=== PATIENT | female | born 1970 | race Caucasian/White ===

== ENCOUNTER 2022-11-27 21:40 | Emergency (ER) | payer OTHER ==
[2022-11-27 22:26] LABS: #Basophils 0.1 10x3/uL (0.0-0.2); #Eosinphils 0.2 10x3/uL (0.0-0.5); #Monocytes 0.9 10x3/uL (0.0-1.1); #Neutrophils 7.7 10x3/uL (1.5-8.4); %Basophils 0.7 % (0.0-2.0); %Eosinophils 1.9 % (0.0-6.0); %Lymphocytes 15.3 % (18.0-47.0); %Monocytes 8.6 % (0.0-10.0); %Neutrophils 72.9 % (40.0-75.0); Hemoglobin 9.5 g/dL (12.0-15.5); Mean Corpuscular HGB CONC 30.1 g/dL (32.0-36.0); Mean Corpuscular Hemoglobin 24.9 pg (27.0-33.0); Mean Corpuscular Volume 82.7 fl (81.6-98.3); Mean Platelet Volume 10.5 fl (7.4-10.4); Platelet Count 283 10x3/uL (150-450); RBC Distribution Width 16.8 % (11.5-14.5); Red Blood Cell (RBC) Count 3.82 10x6/uL (3.90-5.03); White Blood Cell (WBC) Count 10.5 10x3/uL (3.5-10.5)
[2022-11-27 22:40] LABS: ALT (SGPT) 19 U/L (8-55); AST (SGOT) 20 U/L (5-34); Albumin 3.4 g/dL (3.5-5.0); Alkaline Phosphatase 115 U/L (40-110); Anion Gap 13 mmol/L (10-20); BUN (Urea Nitrogen) 10 mg/dL (7.0-18.7); Bilirubin, Total 0.3 mg/dL (0.2-1.2); Calc. Creatinine Clearance 0 mL/min (70-130); Calcium 8.5 mg/dL (7.8-10.44); Carbon Dioxide 26 mmol/L (22-29); Chloride 99 mmol/L (98-107); Estimated GFR 59; Globulin 2.4 g/dL (2.4-3.5); Glucose 309 mg/dL (70-105); Potassium 3.6 mmol/L (3.5-5.1); Protein, Total 5.8 g/dL (6.0-8.3); Sodium 134 mmol/L (136-145)
== END 2022-11-27 22:59 | disposition home or self-care (01) ==
LOC: CSHERS 21:40
DX: R60.0 Localized edema (principal); E11.9 Type 2 diabetes mellitus without complications; I10 Essential (primary) hypertension; F17.210 Nicotine dependence, cigarettes, uncomplicated; J45.909 Unspecified asthma, uncomplicated; Z79.84 Long term (current) use of oral hypoglycemic drugs; Z79.899 Other long term (current) drug therapy
CPT/HCPCS: 36415; 80053; 83880; 85025; 99284

== ENCOUNTER 2023-12-07 20:04 | Observation (INO) | payer MEDICAID, OTHER ==
[2023-12-07] MEDS ORDERED: Ondansetron PF 4 MG/2 ML Vial ONE ×2 (20:27→22:48)
[2023-12-07 20:53] LABS: #Basophils 0.05 10x3/uL (0.0-0.2); #Eosinphils 0.08 10x3/uL (0.0-0.5); #Monocytes 0.79 10x3/uL (0.0-1.1); #Neutrophils 9.69 10x3/uL (1.5-8.4); %Basophils 0.4 % (0.0-2.0); %Eosinophils 0.7 % (0.0-6.0); %Lymphocytes 10.9 % (18.0-47.0); %Monocytes 6.6 % (0.0-10.0); Hematocrit 35.8 % (34.9-44.5); Hemoglobin 12.6 g/dL (12.0-15.5); Mean Corpuscular HGB CONC 35.2 g/dL (32.0-36.0); Mean Corpuscular Hemoglobin 29.2 pg (27.0-33.0); Mean Corpuscular Volume 83.1 fL (81.6-98.3); Mean Platelet Volume 10.2 fL (7.4-10.4); Platelet Count 312 10x3/uL (150-450); RBC Distribution Width 14.8 % (11.5-14.5); Red Blood Cell (RBC) Count 4.31 10x6/uL (3.90-5.03)
[2023-12-07 21:04] LABS: ALT (SGPT) 7 U/L (8-55); AST (SGOT) 15 U/L (5-34); Albumin 3.6 g/dL (3.5-5.0); Alkaline Phosphatase 120 U/L (40-110); Anion Gap 16 mmol/L (10-20); BUN (Urea Nitrogen) 24 mg/dL (9.8-20.1); Bilirubin, Total 0.5 mg/dL (0.2-1.2); Calc. Creatinine Clearance 0 mL/min (70-130); Calcium 9.6 mg/dL (7.8-10.44); Carbon Dioxide 29 mmol/L (22-29); Chloride 93 mmol/L (98-107); Estimated GFR 35; Globulin 3.4 g/dL (2.4-3.5); Glucose 75 mg/dL (70-105); Lipase 54 U/L (8-78); Magnesium 1.8 mg/dL (1.6-2.6); Potassium 3.7 mmol/L (3.5-5.1); Sodium 134 mmol/L (136-145)
[2023-12-07] MEDS ORDERED: Acetaminophen 500 MG TAB ONE (21:57)
[2023-12-07 22:04] LABS: Bilirubin Neg (Negative); Blood, Urine Negative (Negative); Clarity Clear (Clear); Glucose, Urine (Dipstick) Normal (Negative); Ketone, Urine Negative (Negative); Leukocyte Negative (Negative); Nitrite Negative (Negative); Protein, Urine (Dipstick) Negative (Neg-Trace); Urobilinogen Normal mg/dL (Less than 2)
[2023-12-07 22:32] LABS: Bacteria/HPF None Seen HPF (None Seen); CAUTI Indications for Culture Pelvic or flank pain; RBC/HPF None Seen HPF (0-3); Squamous Epithelial 0-3 HPF (0-3); WBC/HPF None Seen HPF (0-3)
[2023-12-07 22:34] LABS: Urine Culture Reflex No No
[2023-12-08 00:31] VITALS: BMI 40.3
[2023-12-08] MEDS ORDERED: Ondansetron PF 4 MG/2 ML Vial IVP PRN (03:21)
[2023-12-08] MEDS ORDERED: Ventolin HFA Inhaler 60 PUFF INHALER INH PRN (03:26)
[2023-12-08] MEDS: NS 0.9% w/ 20 MEQ KCL 1,000 ML/1,000 ML BAG IV SCH (03:51)
[2023-12-08 05:02] LABS: #Basophils 0.07 10x3/uL (0.0-0.2); #Monocytes 0.67 10x3/uL (0.0-1.1); #Neutrophils 6.78 10x3/uL (1.5-8.4); %Basophils 0.8 % (0.0-2.0); %Eosinophils 1.1 % (0.0-6.0); %Lymphocytes 17.9 % (18.0-47.0); %Monocytes 7.2 % (0.0-10.0); %Neutrophils 72.6 % (40.0-75.0); Hematocrit 32.6 % (34.9-44.5); Hemoglobin 11.3 g/dL (12.0-15.5); Mean Corpuscular HGB CONC 34.7 g/dL (32.0-36.0); Mean Corpuscular Hemoglobin 28.9 pg (27.0-33.0); Mean Corpuscular Volume 83.4 fL (81.6-98.3); Mean Platelet Volume 10.6 fL (7.4-10.4); Platelet Count 276 10x3/uL (150-450); Red Blood Cell (RBC) Count 3.91 10x6/uL (3.90-5.03); White Blood Cell (WBC) Count 9.3 10x3/uL (3.5-10.5)
[2023-12-08 05:32] LABS: BUN (Urea Nitrogen) 20 mg/dL (9.8-20.1); Calc. Creatinine Clearance 84 mL/min (70-130); Calcium 8.6 mg/dL (7.8-10.44); Carbon Dioxide 27 mmol/L (22-29); Estimated GFR 48; Glucose 150 mg/dL (70-105); Magnesium 1.7 mg/dL (1.6-2.6)
[2023-12-08 05:37] LABS: Chloride 100 mmol/L (98-107); Potassium 3.4 mmol/L (3.5-5.1); Sodium 137 mmol/L (136-145)
[2023-12-08 05:40] LABS: Anion Gap 13 mmol/L (10-20)
[2023-12-08] MEDS: Mometasone/Formoterol 200/5 60 PUFF INH SCH (08:05)
[2023-12-08] MEDS: Apixaban 5 MG TAB PO SCH (08:25)
[2023-12-08] MEDS: Venlafaxine HCl XR 75 MG CAP PO SCH (08:25)
[2023-12-08] MEDS: lamoTRIgine 100 MG TAB PO SCH (08:25)
[2023-12-08] MEDS ORDERED: Enoxaparin 40 MG (0.4 mL) SYRINGE SC SCH (09:00)
[2023-12-08 10:25] VITALS: BMI 40.3
[2023-12-08 13:48] VITALS: BP 146/80; TEMP 97.5
[2023-12-08] MEDS: Potassium Chloride 20 MEQ TAB PO SCH (16:40)
== END 2023-12-08 16:39 | disposition home or self-care (01) ==
LOC: CSHERS 20:04 → CSHTELE 23:15
PROVIDERS: ADMIT Family Medicine; ATTEND Hospitalist
DX: K52.9 Noninfective gastroenteritis and colitis, unspecified (principal); N17.9 Acute kidney failure, unspecified; E11.9 Type 2 diabetes mellitus without complications; I10 Essential (primary) hypertension; J45.909 Unspecified asthma, uncomplicated; F32.A Depression, unspecified; Z88.2 Allergy status to sulfonamides; Z79.51 Long term (current) use of inhaled steroids; Z79.4 Long term (current) use of insulin; Z79.01 Long term (current) use of anticoagulants; Z98.51 Tubal ligation status; Z90.49 Acquired absence of other specified parts of digestive tract; F17.210 Nicotine dependence, cigarettes, uncomplicated; Z79.899 Other long term (current) drug therapy
CPT/HCPCS: 36416; 80048; 80053; 81001; 83690; 83735; 85025; 96374; 96375; 96376; G0378; J2405; J3480